=== PATIENT | female | born 1990 | race Caucasian/White ===

== ENCOUNTER 2017-08-20 17:38 | Emergency (ER) | payer MEDICAID, SELFPAY ==
[2017-08-20 17:50] VITALS: BP 147/96
--- NOTE | 2017-08-20 17:56 | EDM.PDOC ---
ED HPI GENERAL MEDICAL PROBLEM - General Chief Complaint: General Stated Complaint: LEFT FOOT INJURY Time Seen by Provider: 08/20/17 17:45 Source of Information: Reports: Patient, Family, RN History Limitations: Reports: No Limitations - History of Present Illness INITIAL COMMENTS - FREE TEXT/NARRATIVE: This 27 yr female presents with injury to left foot. States she was helping with getting ready for a wedding and heavy wood/angulo bag toss board feel right on top of left foot. States wood hit top of foot only and no other place to body. States her has been going well with no complications. States she does have a follow-up appointment next week with [facility] [facility] ). Pt reports she live in [facility] and is here for the weekend, staying with her parents and has a wedding this weekend. Onset: Today Onset Date: 08/20/17 Onset Time: 17:00 Location: Reports: Lower Extremity, Left Improves with: Reports: Cold Therapy, Immobilization, Rest Worsens with: Reports: Movement Associated Symptoms: Reports: Other (she is ) Left Feet Pain Score (Numeric/FACES): 8 - Related Data Allergies Allergy/AdvReac Type Severity Reaction Status Date / Time bee pollen Allergy Anaphylactic Verified 08/20/17 18:02 Shock Penicillins Allergy Rash Verified 08/20/17 18:02 Sulfa (Sulfonamide Allergy Hives Verified 08/20/17 18:01 Antibiotics) Home Meds: Home Meds Sertraline HCl [Zoloft] 50 mg PO DAILY 08/20/17 [History] ED ROS GENERAL - Review of Systems Review Of Systems: See Below Constitutional: Reports: No Symptoms Musculoskeletal: Reports: Foot Pain. Denies: Joint Pain, Joint Swelling Skin: Reports: Bruising, Other (swelling) Neurological: Reports: No Symptoms ED EXAM, GENERAL - Physical Exam Exam: See Below Exam Limited By: No Limitations General Appearance: Alert, No Apparent Distress Peripheral Pulses: 2+: Dorsalis Pedis (L) Extremities: Normal Capillary Refill, Limited Range of Motion Neurological: Alert, Oriented, Normal Cognition Skin Exam: Warm, Dry, Intact, Other (swelling) Course - Vital Signs Last Recorded V/S: Last Vital Signs Temp 98.3 F 08/20/17 17:48 Pulse 96 08/20/17 17:48 Resp 20 08/20/17 17:48 BP 147/96 H 08/20/17 17:48 Pulse Ox 100 08/20/17 17:48 - Orders/Labs/Meds Orders: Active Orders 24 hr Category Date Time Status Foot 2V Lt [CR] Stat Exams 08/20/17 17:53 Taken - Re-Assessments/Exams Free Text/Narrative Re-Assessment/Exam: 08/21/17 07:45 08-20-17 18:25 Reviewed results of x-ray with patient and her mother. Recommend return to PCP when return home. Recommend elevating extremity, ice to area 3-5x/day and rest. Recommend F/U with [facility] [employer] [employer] [facility] for continued use of her Sertraline. Notified pt and mother of possible adverse side effects for the . At this time pt states she has reviewed this with her [facility] [employer] and risk/ benefit has been discussed and dose of medication had been decreased. Pt states she will discuss with her [facility] [employer] next week. Departure - Departure Time of Disposition: 18:30 Disposition: Home, Self-Care 01 Condition: Good Clinical Impression: Injury of left foot - Discharge Information Referrals: PCP,None [Primary Care Provider] - Forms: ED Department Discharge - My Orders Last 24 Hours: My Active Orders 08/20/17 17:53 Foot 2V Lt [CR] Stat - Assessment/Plan Last 24 Hours: My Active Orders 08/20/17 17:53 Foot 2V Lt [CR] Stat
--- NOTE | 2017-08-21 13:52 | CR ---
DATE OF SERVICE: 08/20/17 CLINICAL DATA: left foot injury LEFT FOOT: AP and oblique views were performed. No evidence of fracture or dislocation. No lytic or blastic bone lesions. [id number] [facility]
== END 2017-08-20 18:31 | disposition home or self-care (01) ==
LOC: LB.ED 17:38
DX: O99.89 Other specified diseases and conditions complicating pregnancy, childbirth and the puerperium (principal); S99.922A Unspecified injury of left foot, initial encounter; Z91.030 Bee allergy status; Z88.2 Allergy status to sulfonamides; Z88.0 Allergy status to penicillin; W20.8XXA Other cause of strike by thrown, projected or falling object, initial encounter; Z3A.17 17 weeks gestation of pregnancy
CPT/HCPCS: 73620-LT; 99283